=== PATIENT | female | born 1960 | race African-American/Black ===

== ENCOUNTER 2025-09-13 10:04 | Outpatient (CLI) | payer OTHER ==
[2025-09-13 11:08] LABS: ALT (SGPT) 13 U/L (Less than 34); AST (SGOT) 18 U/L (11-34); Albumin 4.3 g/dL (3.1-4.5); Alkaline Phosphatase 73 U/L (40-110); Anion Gap 19 mmol/L (10-20); BUN (Urea Nitrogen) 17 mg/dL (9.8-20.1); Bilirubin, Total 0.3 mg/dL (0.3-1.2); Calc. Creatinine Clearance 0 mL/min (70-130); Calcium 9.5 mg/dL (7.8-10.44); Carbon Dioxide 20 mmol/L (23-31); Cardiac Risk 3.2 (Less than 4.5); Chloride 109 mmol/L (98-107); Cholesterol 128 mg/dl (< 200 Desired); Globulin 3.2 g/dL (2.4-3.5); Glucose 58 mg/dL (80-115); HDL Cholesterol 40 mg/dL (>60 Neg Risk); LDL Cholesterol, Calculated 60 mg/dL; Potassium 4.0 mmol/L (3.5-5.1); Sodium 144 mmol/L (136-145); Triglycerides 139 mg/dL (Less than 150)
== END 2025-09-13 10:05 | disposition home or self-care (01) ==
LOC: MADLAB 10:04
PROVIDERS: ATTEND Physician Assistant
DX: E78.2 Mixed hyperlipidemia (principal)
CPT/HCPCS: 36415; 80053; 80061